=== PATIENT | female | born 1945 | race Caucasian/White ===

== ENCOUNTER 2018-12-31 09:26 | Emergency (ER) | payer SELFPAY ==
[2018-12-31 09:34] VITALS: BMI 24.0
[2018-12-31] MEDS ORDERED: Sodium Chloride 0.9% 500 ML IV STA (10:32)
--- NOTE | 2018-12-31 10:55 | ED PDOC ---
History of Present Illness History of Present Illness: 73yo female presents w daughter c/o 4-5 days of body aches, tactile fevers, headache, cough, joint pains and sore throat. Denies syncope, edema, urinary symptoms, neck stiffness or abdominal pain. HPI: Influenza Time Seen by Provider: 12/31/18 10:24 Chief Complaint: Flu-like Symptoms Chief Complaint (Provider): body aches cough History Per: Patient, Pump Servicer (Raheem johnson) Exam Limitations: no limitations Have you had recent travel within the past 21 days to any of: No Onset/Duration Of Symptoms: Days (4-5), Gradual Symptoms include: fever, headache, bodyaches, sore throat, cough. denies: vomiting, diarrhea, syncope, difficulty breathing, rash, blurry vision Sick Contacts (Context): None Risk factors for flu complications: Yes: adult > 65 years Past Medical History Reviewed: Historical Data, Nursing Documentation, Vital Signs Vital Signs: Last Vital Signs Temp 98.8 F 12/31/18 09:34 Pulse 64 12/31/18 09:34 Resp 17 12/31/18 09:34 BP 135/78 12/31/18 09:34 Pulse Ox 97 12/31/18 09:34 Primary Care Provider: FAMILY PROVIDER,NO - Medical History PMH: HTN Denies: Chronic Kidney Disease - Surgical History Other surgeries: BTL - Family History Family History: States: Unknown Family Hx - Home Medications Home Medications: Ambulatory Orders Medication Instructions Recorded Naproxen [Naprosyn] 500 mg PO BID PRN #14 tablet 12/31/18 Oseltamivir Cap [Tamiflu] 75 mg PO BID #10 cap 12/31/18 - Allergies Allergies/Adverse Reactions: Allergies Allergy/AdvReac Type Severity Reaction Status Date / Time No Known Allergies Allergy Verified 12/31/18 09:47 Review of Systems ROS Statement: Except As Marked, All Systems Reviewed And Found Negative Constitutional: Positive for: Fever, Chills, Weakness, Malaise ENT: Positive for: Throat Pain Cardiovascular: Negative for: Chest Pain Respiratory: Positive for: Cough, Shortness of Breath, SOB with Exertion. Negative for: Wheezing Gastrointestinal: Negative for: Vomiting, Abdominal Pain Genitourinary Female: Negative for: Dysuria, Hematuria Musculoskeletal: Positive for: Leg Pain, Other (myalgias). Negative for: Neck Pain, Back Pain Skin: Negative for: Rash, Lesions Neurological: Positive for: Headache. Negative for: Weakness, Numbness Psych: Negative for: Suicidal ideation Physical Exam - Reviewed Nursing Documentation Reviewed: Yes Vital Signs Reviewed: Yes - Physical Exam Appears: Positive for: Non-toxic (elderly anguillan speaking), No Acute Distress Head Exam: Positive for: ATRAUMATIC, NORMAL INSPECTION, NORMOCEPHALIC Skin: Positive for: Normal Color, Warm, DRY Eye Exam: Positive for: EOMI, Normal appearance, PERRL ENT: Positive for: Normal ENT Inspection Neck: Positive for: Normal, Painless ROM Cardiovascular/Chest: Positive for: Regular Rate, Rhythm Respiratory: Positive for: CNT, Normal Breath Sounds Gastrointestinal/Abdominal: Positive for: Normal Exam, Soft Back: Positive for: Normal Inspection Extremity: Positive for: Normal ROM Neurological/Psych: Positive for: Awake, Alert, Normal Tone, Symmetric/Intact Strength. Negative for: Lethargic, Motor/Sensory Deficits Medical Decision Making Medical Decision Making: workup for SOB, flu like illness in elderly female check cardiac panel r/o myocardititis or complication of flu check labs and CXR initiate tylenol for symptoms ------ labs were unremarkable flu neg but given symptoms and age offer treatment empirically w tamiflu well appearing on re-eval and ambulatory to baseline, family member would like to take home - Laboratory Results Result Diagrams: 12/31/18 11:20 12/31/18 11:20 - ECG O2 Sat by Pulse Oximetry: 97 Disposition - Clinical Impression Clinical Impression: Influenza-like symptoms - Patient ED Disposition Is Patient to be Admitted: No Counseled Patient/Family Regarding: Studies Performed, Diagnosis, Need For Followup, Rx Given - Disposition Disposition: Routine/Home Disposition Time: 15:00 Condition: STABLE Additional Instructions: Drink plenty of fluids, take medications as directed. Prescriptions: Naproxen [Naprosyn] 500 mg PO BID PRN #14 tablet PRN Reason: Pain, Moderate (4-7) Oseltamivir Cap [Tamiflu] 75 mg PO BID #10 cap Instructions: Flu, Adult (DC) Forms: [employer] (Kazakh) Print Language: YI
[2018-12-31 11:31] LABS: BASO % 0.8 % (0.0-2.0); EOS # 0.2 K/uL (0.0-0.7); HEMOGLOBIN 13.7 g/dL (12.0-16.0); LYMPH # 1.8 K/uL (1.0-4.3); LYMPH % 42.5 % (20.0-40.0); MEAN CELL VOLUME 97.4 fl (81.0-99.0); MEAN CORPUSCULAR HEMOGLOBIN 32.1 pg (27.0-31.0); MEAN CORPUSCULAR HGB CONC 32.9 g/dL (33.0-37.0); MEAN PLATELET VOLUME 9.7 fl (7.2-11.7); MONO # 0.4 K/uL (0.0-0.8); MONO % 8.9 % (0.0-10.0); NEUT # 1.8 K/uL (1.8-7.0); NEUT % 42.8 % (50.0-75.0); NRBC % 0.1 % (0.0-0.0); RBC 4.28 Mil/uL (3.80-5.20); RED CELL DISTRIBUTION WIDTH 12.9 % (11.5-14.5); WHITE BLOOD COUNT 4.3 K/uL (4.8-10.8)
[2018-12-31 11:45] LABS: ALB/GLOB RATIO 1.3 (1.0-2.1); ALBUMIN 4.4 g/dL (3.5-5.0); ALT/SGPT 30 U/L (9-52); AST/SGOT 36 U/L (14-36); BLOOD UREA NITROGEN 7 mg/dl (7-17); CALCIUM 9.1 mg/dL (8.4-10.2); GFR NON-AFRICAN AMERICAN > 60
--- NOTE | 2018-12-31 11:46 | RAD ---
Date of service: 12/31/2018 HISTORY: chest pain/ r/o infiltrate COMPARISON: 10/11/2013 TECHNIQUE: Chest PA and lateral views FINDINGS: LUNGS: No active pulmonary disease. PLEURA: No significant pleural effusion identified. No pneumothorax apparent. CARDIOVASCULAR: No aortic atherosclerotic calcification present. Tortuous prominent thoracic aorta-similar configuration Normal cardiac size. No pulmonary vascular congestion. OSSEOUS STRUCTURES: No significant abnormalities. VISUALIZED UPPER ABDOMEN: Normal. OTHER FINDINGS: None. IMPRESSION: No active disease. No interval pathology noted.
[2018-12-31 11:56] LABS: B-TYPE NATRIURETIC PEPTIDE 193 pg/ml (0-900)
[2018-12-31 15:32] LABS: URINE BILIRUBIN NEGATIVE (NEGATIVE); URINE BLOOD NEGATIVE (NEGATIVE); URINE CLARITY CLEAR (Clear); URINE COLOR STRAW (YELLOW); URINE GLUCOSE (UA) NEG (NEGATIVE); URINE LEUKOCYTE ESTERASE NEG Leu/uL (Negative); URINE PROTEIN NEGATIVE (NEGATIVE); URINE UROBILINOGEN 0.2-1.0 mg/dL (0.2-1.0)
[2018-12-31 15:56] VITALS: BP 143/75; PULSE 56; RESP 18; TEMP 98.1
[2019-01-02 16:51] VITALS: O2SAT 97
== END 2018-12-31 15:47 | disposition home or self-care (01) ==
LOC: H.ER 09:26
DX: J11.1 Influenza due to unidentified influenza virus with other respiratory manifestations (principal); I10 Essential (primary) hypertension
CPT/HCPCS: 71046; 80053; 81003; 82550; 82948; 83880; 84484; 85025; 87804; 99284; J7030